=== PATIENT | female | born 1970 | race Caucasian/White ===

== ENCOUNTER 2016-08-09 20:03 | Emergency (ER) | payer MEDICAID ==
[~2016-08-09] VITALS: Ht 175.3 cm; Wt 124.7 kg
[2016-08-09 20:11] VITALS: BP 154/90
[2016-08-09] MEDS ORDERED: SERTRALINE HCL100 MG PO (20:16)
[2016-08-09] MEDS ORDERED: RISPERDAL1 MG PO (20:16)
[2016-08-09] MEDS ORDERED: SYNTHROID150 MCG ORAL (20:16)
[2016-08-09] MEDS ORDERED: SEROQUEL100 MG ORAL (20:16)
--- NOTE | 2016-08-09 20:26 | Emergency Room Report ---
History of Present Illness General Chief Complaint: Pain Source: Patient Present Illness HPI The patient presented for jaw pain. Patient stated that she began having jaw pain after being given Risperdal at a psychiatric facility. Patient denied any fever. She reports having increased pain with movement. Patient states that she's having difficulty moving her jaw. She states that she needed Klonopin for her jaw problem. The patient has prior history of schizophrenia. Allergies: Uncoded Allergies: PENICLLIN (Allergy, Unknown, 08/09/16) Patient History Past Medical History: see triage record Last Menstrual Period: a week ago Now: No Reviewed Nursing Documentation: PMH: Agreed, PSxH: Agreed Nursing Documentation-PMH Past Medical History: No History, Except For Hx Seizures: Yes Review of Systems All Other Systems: negative except mentioned in HPI Physical Exam Vital Signs Date Time Temp Pulse Resp B/P Pulse Ox O2 Delivery O2 Flow Rate FiO2 08/09/16 20:11 98.8 92 16 154/90 96 Room Air General Appearance: well appearing, no apparent distress, alert, GCS 15 Head: normocephalic, atraumatic ENT: hearing grossly normal, normal voice, other - No trismus, normal range of motion Neck: full range of motion, supple Respiratory: no respiratory distress, speaking full sentences Cardiovascular #1: normal inspection, normal peripheral pulses, regular rate, rhythm Musculoskeletal: no calf tenderness Neurologic: normal gait Psychiatric: mood/affect normal Skin: no rash Medical Decision Making Diagnostic Impression: Primary Impression: Jaw pain ER Course Patient presented for jaw pain. Differential diagnosis included was not limited to dystonic reaction, anxiety, dental abscess, tetanus among others. Patient's benign exam and does not appear to require any further imaging or laboratory testing at this time. The patient appears to have a normal mandibular range of motion. The patient was given IM Benadryl. Patient was noted to have normal jaw movement when slightly distracted. She seems to have some volitional component.The patient is advised to follow up with primary care doctor in 1-2 days. Patient is advised to return if any worsening condition or if any changes in status that are concerning. Last Vital Signs Date Time Temp Pulse Resp B/P Pulse Ox O2 Delivery O2 Flow Rate FiO2 08/09/16 20:11 98.8 92 16 154/90 96 Room Air Status: improved Disposition: HOME, SELF-CARE Condition: Stable Tyrone Morales Aug 09, 2016 20:26
[2016-08-09] MEDS ORDERED: BENZTROPINE MESY2 MG ORAL (20:28)
[2016-08-09] MEDS ORDERED: DiphenhydrAMINE 50mg/ml Inj IM ONE (20:30)
[2016-08-09 20:49] VITALS: BP 148/90
== END 2016-08-09 20:50 | disposition home or self-care (01) ==
LOC: EMR 20:34
DX: R68.84 Jaw pain (principal); Z88.0 Allergy status to penicillin
CPT/HCPCS: 96372; 99283; J1200